=== PATIENT | female | born 1980 ===

== ENCOUNTER 2018-08-06 18:04 | Emergency (ER) | payer SELFPAY ==
[~2018-08-06] VITALS: Ht 165.1 cm; Wt 59.0 kg
[~2018-08-06 18:04] MED LIST: ALBU90OI INH; AMOCLA875 PO; AZIT250 PO; Augmentin 875-1 EACH PO; BUSP5 PO; CEPH500 PO; CETI10 PO; CIPDEXSU LEFTEAR; CLIN150 PO; Cleocin HCl150 MG PO; Cleocin HCl300 MG PO; DIPH25 PO; Diflucan100 MG PO; FAMO20 PO; FLUC150A PO; HYDACE5 PO; HYDCOR1TC TOP; HYDGUAL120 PO; HYDPAM25 PO; HYDPAM50 PO; LORA1 PO; LORA2 PO; MULVITMINE; NAPR500 PO; Naprosyn500 MG PO; Nasonex17 GM; OXYACE5T PO; PENVK500 PO; PRED10 PO; PRED20 PO; PROACE100 PO; RANI150 PO; RXHYDACE PO; RXTRAM50 PO; Sudogest30 MG PO; TOBDEXOPSU OP; TRAM50 PO; Veetids 500500 MG PO; Vibramycin100 MG PO; Zofran Odt4 MG SL
[2018-08-06] MEDS ORDERED: KETO10 PO (19:33)
[2018-08-06] MEDS ORDERED: Cleocin HCl300 MG PO (19:33)
== END 2018-08-06 19:47 | disposition home or self-care (01) ==
LOC: ER 18:04
DX: K04.7 Periapical abscess without sinus (principal); F17.210 Nicotine dependence, cigarettes, uncomplicated; Z88.2 Allergy status to sulfonamides; Z88.8 Allergy status to other drugs, medicaments and biological substances
CPT/HCPCS: 99282

== ENCOUNTER → 2019-08-06 | Outpatient (CLI) | payer OTHER ==
[~2019-08-06] MED LIST changes: +KETO10 PO
== END | disposition home or self-care (01) ==
LOC: LAB EV 10:38 → LAB SHORT 10:38
DX: R31.9 Hematuria, unspecified (principal)
CPT/HCPCS: 87086

== ENCOUNTER → 2019-08-17 | Outpatient (CLI) | payer OTHER ==
[2019-08-20 00:06] LABS: CHLAMYDIA TRACHOMATIS, NAA Negative (Negative); NEISSERIA GONORRHOEAE, NAA Negative (Negative)
== END ==
LOC: LAB SHORT 13:26 → LAB EV 13:26
PROVIDERS: Emergency Medicine
DX: N89.8 Other specified noninflammatory disorders of vagina (principal)
CPT/HCPCS: 87070; 87205; 87491; 87591

== ENCOUNTER → 2019-12-09 | Outpatient (CLI) | payer OTHER ==
[2019-12-09 14:23] LABS: BASOPHILS ABSOLUTE AUTO 0.03 K/mm3 (0.00-0.23); BASOPHILS PERCENT AUTO 1 % (0-2); EOSINOPHILS ABSOLUTE AUTO 0.12 K/mm3 (0.00-0.68); EOSINOPHILS PERCENT AUTO 2 % (0-6); Hematocrit 35.7 % (33.0-51.0); Hemoglobin 11.6 g/dL (11.5-16.0); IMMATURE GRAN ABSOLUTE AUTO 0.01 K/mm3 (0.00-0.10); IMMATURE GRAN PERCENT AUTO 0 % (0-1); LYMPHOCYTES ABSOLUTE AUTO 2.17 K/mm3 (0.84-5.20); LYMPHOCYTES PERCENT AUTO 33 % (21-46); MONOCYTES ABSOLUTE AUTO 0.56 K/mm3 (0.16-1.47); MONOCYTES PERCENT AUTO 8 % (4-13); Mean Corpuscular HGB 29.1 pg (26.0-34.0); Mean Corpuscular HGB Conc 32.5 g/dL (31.5-36.5); Mean Corpuscular Volume 90 fL (80-100); Mean Platelet Volume 11.4 fL (9.1-12.4); NEUTROPHILS ABSOLUTE AUTO 3.75 K/mm3 (1.96-9.15); NEUTROPHILS PERCENT AUTO 56 % (41-73); Platelet Count 311 K/mm3 (150-400); RDW Standard Deviation 46.5 fL (35.1-46.3); Red Blood Cell Count 3.98 M/mm3 (3.80-5.20); White Blood Cell Count 6.64 K/mm3 (4.00-11.30)
[2019-12-09 14:34] LABS: Alanine Aminotransfer (ALT/SGP 13 U/L (12-78); Albumin, Blood 4.1 g/dL (3.4-5.0); Albumin/Globulin Ratio 1.2 (0.8-1.8); Alk Phos 24 U/L (40-126); Anion Gap 9 mmol/L (6-16); Aspartate Aminotrans (AST/SGOT 14 U/L (12-37); Bilirubin, Total 0.3 mg/dL (0.1-1.0); Blood Urea Nitrogen 7 mg/dL (8-24); CO2, Blood 28 mmol/L (21-32); Calcium, Blood 8.9 mg/dL (8.5-10.1); Chloride, Blood 107 mmol/L (98-108); Creatinine, Blood 0.78 mg/dL (0.40-1.00); Globulin, Blood 3.4 g/dL (2.2-4.0); Glomerular Filtration Rate >60 (60-); Glucose, Blood 85 mg/dL (70-99); Potassium, Blood 4.1 mmol/L (3.5-5.5); Sodium, Blood 144 mmol/L (136-145); Total Protein, Blood 7.5 g/dL (6.4-8.2)
[2019-12-09 14:37] LABS: Troponin I <0.017 ng/mL (0.000-0.040)
[2019-12-10 11:27] LABS: Antinuclear Antibody Screen Negative (Negative)
== END ==
LOC: LAB SHORT 14:16 → LAB EV 14:16
PROVIDERS: Physician Assistant
DX: I73.00 Raynaud's syndrome without gangrene (principal); R07.9 Chest pain, unspecified
CPT/HCPCS: 80053; 84484; 85025; 85651; 86038; 86140